=== PATIENT | female | born 1990 | race Caucasian/White ===

== ENCOUNTER 2016-05-25 07:19 | Emergency (ER) | payer BC ==
[~2016-05-25] VITALS: Ht 160 cm; Wt 47.6 kg
[2016-05-25 07:30] VITALS: BP 105/67
[2016-05-25] MEDS ORDERED: Norco 5mg/325mg tab PO ONE (07:45)
[2016-05-25] MEDS ORDERED: NORCO 5-325 TA1 EACH ORAL (08:56)
[2016-05-25] MEDS ORDERED: IBUPROFEN600 MG ORAL (08:56)
[2016-05-25 09:00] VITALS: BP 113/69
--- NOTE | 2016-05-25 09:00 | Diagnostic Imaging Report ---
Indication: Right elbow pain Technique: XRAY ELBOW MIN 3 VIEWS RIGHT Comparison: None Findings: Examination is limited by overlying artifact. Nondisplaced radial head fracture is suspected. An elbow joint effusion is present. Bone mineralization is normal. Impression: Examination limited by overlying artifact. Elbow joint effusion with suspected nondisplaced radial head fracture. Clinical correlation recommended.
--- NOTE | 2016-05-25 09:00 | Diagnostic Imaging Report ---
Indication: Right wrist pain Technique: XRAY WRIST MIN 3V RIGHT Comparison: None Findings: There is no radiographically evident fracture or dislocation. Bone mineralization is normal. Soft tissues are unremarkable. Impression: No acute osseous abnormality.
[2016-05-25 09:14] VITALS: BP 113/69
--- NOTE | 2016-05-25 09:34 | Emergency Room Report ---
History of Present Illness General Chief Complaint: Upper Extremity Injury Source: Patient Present Illness HPI 25-year-old female visits to ED complaining of right elbow pain and swelling. States yesterday she fell off of her skateboard and landed on her right elbow. Denies hitting her head or LOC. Notes increased pain and swelling to the right elbow. Also pain to her right wrist. Pain is sharp. 10 out of 10. Nonradiating. Worse with flexion and extension. Notes limited range of motion. Denies any other injuries. Denies any other associated symptom Allergies: Coded Allergies: No Known Allergies (Unverified , 05/25/16) Patient History Past Medical History: none Past Surgical History: none Pertinent Family History: none Social History: Denies: alcohol use, drug use, smoking Last Menstrual Period: 05/22/16 Now: No Immunizations: UTD Reviewed Nursing Documentation: PMH: Agreed, PSxH: Agreed Nursing Documentation-PMH Past Medical History: No Stated History Review of Systems All Other Systems: negative except mentioned in HPI Physical Exam Vital Signs Date Time Temp Pulse Resp B/P Pulse Ox O2 Delivery O2 Flow Rate FiO2 05/25/16 07:26 98.2 105 18 105/67 98 Room Air Sp02 EP Interpretation: reviewed, normal General Appearance: no apparent distress, alert, GCS 15, non-toxic Head: normocephalic Eyes: bilateral eye PERRL, bilateral eye normal inspection ENT: normal ENT inspection Neck: normal inspection Respiratory: normal inspection Cardiovascular #1: normal inspection Gastrointestinal: normal inspection Rectal: deferred Genitourinary: no CVA tenderness Musculoskeletal: decreased range of motion, swelling - R elbow, tender - R wrist Neurologic: alert, oriented x3, responsive, motor strength/tone normal, sensory intact, speech normal Psychiatric: normal inspection Skin: normal inspection Lymphatic: normal inspection Procedures Splinting Splinting : Consent: Verbal Hand-Made Type: plaster Splint: R arm long arm Pre-Proc Neuro Vasc Exam: normal Post-Proc Neuro Vasc Exam: normal Patient Tolerated: Well Complications: None Medical Decision Making Diagnostic Impression: Primary Impression: Elbow fracture, right Qualified Codes: S42.401A - Unspecified fracture of lower end of right humerus , initial encounter for closed fracture ER Course Hospital Course 25-year-old F presents to ED complaining of R wrist and R elbow pain s/p fall Differential diagnoses include: Fracture, dislocation, sprain, contusion Clinical course Patient placed on stretcher. After initial history and physical, I ordered pain medications and Xrays of R wrist, elbow R wrist unremarkable Right elbow shows radial head fracture with joint effusion. No dislocation Placed in a long arm splint. Sling applied. Reassessment pain improved. will give ortho referrals Diagnosis - elbow fracture Stable and discharged to home with prescription for Motrin, [place]. apply ice, keep elevated. Followup with PMD/ortho. Return to ED if symptoms recur or worsen Other X-Ray Diagnostic Results Other X-Ray Diagnostic Results : X-Ray Ordered: R elbow, R wrist EP Interpretation: No Findings: no fractures, no dislocation, no soft tissue swelling Number of Views: 3 Other Impression Right wrist-No fracture, no dislocation, no soft tissue swelling Right elbow -nondisplaced radial head fracture, elbow joint effusion, no dislocation Last Vital Signs Date Time Temp Pulse Resp B/P Pulse Ox O2 Delivery O2 Flow Rate FiO2 05/25/16 08:40 98.3 05/25/16 07:30 105 18 105/67 98 Room Air Status: improved Disposition: HOME, SELF-CARE Condition: Stable Scripts Hydrocodone Bit/Acetaminophen 5-325* (NORCO 5-325*) 1 Each Tablet 1 TAB ORAL Q6H Y for For Pain, #10 TAB 0 Refills Prov: HETAL TANG M.D. 05/25/16 Ibuprofen* (MOTRIN*) 600 Mg Tablet 600 MG ORAL Q8H Y for For Pain, #30 TAB 0 Refills Prov: HETAL TANG M.D. 05/25/16 Referrals: VAHE JERONIMO DAVID NOT CHOSEN IPA/MD,REFERRING (PCP) JUAN J HAYES Departure Forms: Return to Work Return to Work Date: May 27, 2016 Work Restrictions: No Prolonged Standing, Desk Work Only Patient Instructions: Radial Head Elbow Fracture With [facility]hab[facility] HETAL TANG M.D. May 25, 2016 09:34
== END 2016-05-25 09:14 | disposition home or self-care (01) ==
LOC: EMR 07:41
DX: S42.401A Unspecified fracture of lower end of right humerus, initial encounter for closed fracture (principal); W17.89XA Other fall from one level to another, initial encounter; Y93.51 Activity, roller skating (inline) and skateboarding; Y92.9 Unspecified place or not applicable; M25.531 Pain in right wrist
CPT/HCPCS: 29105; 99284